=== PATIENT | female | born 1970 | race American Indian/Alaskan Native ===

== ENCOUNTER 2017-09-22 01:28 | Emergency (ER) | payer MEDICARE ==
[2017-09-22 01:57] VITALS: BP 105/63
[2017-09-22 02:31] LABS: HCG Qualitative,Urine Negative (Negative)
[2017-09-22 02:33] LABS: Bilirubin,Urine NEG (Negative); Blood,Urine NEG (Negative); Color,Urine Yellow (Yellow); Mucus,Urine FEW /HPF; Nitrite,Urine NEG (Negative); Protein,Urine <15 mg/dL mg/dL (Negative); Urobilinogen,Urine < 2.0 mg/dL (<2.0)
--- NOTE | 2017-09-22 03:04 | XRay Report ---
FINAL REPORT EXAM: XR CHEST ROUTINE 2V HISTORY: sob COMPARISON: None available. FINDINGS:: Frontal and lateral views of the chest obtained. Moderate cardiac enlargement. Left-sided cardiac defibrillator is in place. Prior median sternotomy. Hazy interstitial opacities throughout the lungs. Findings are concerning for mild edema. No pneumothorax. May be pleural thickening along the lateral margin of the left lung base. Tiny loculated effusion is not excluded. IMPRESSION:: Findings concerning for mild CHF. Moderate cardiac enlargement.
== END 2017-09-22 07:30 | disposition left against medical advice (07) ==
LOC: ED 01:28
DX: R05 Cough (principal); R06.02 Shortness of breath; R09.81 Nasal congestion; Z53.21 Procedure and treatment not carried out due to patient leaving prior to being seen by health care provider
CPT/HCPCS: 71046; 81001; 81025

== ENCOUNTER 2017-12-09 14:12 | Emergency (ER) | payer MEDICARE ==
[2017-12-09] MEDS ORDERED: ASPIRIN PO ONE (14:18)
[2017-12-09] MEDS ORDERED: NACL 0.9% 1000 ML 1,000 ML IV ONE ×2 (14:32→18:07)
[2017-12-09] MEDS ORDERED: NACL 0.9% 500 ML 500 ML IV ONE (14:45)
[2017-12-09] MEDS ORDERED: NACL 0.9% 1000 ML 1,000 ML ONE (14:46)
[2017-12-09] MEDS ORDERED: BABY ASPIRIN ONE (14:47)
[2017-12-09] MEDS ORDERED: CORDARONE 900 MG in D5W 482 ML IV SCH (15:30)
[2017-12-09 15:35] LABS: Basophils # (Auto) 0.1 K/mm3 (0.0-0.1); Basophils % (Auto) 0.8 % (0.0-1.8); Eosinophils # (Auto) 0.1 K/mm3 (0.0-0.4); Eosinophils % (Auto) 1.4 % (0.0-4.3); Hematocrit 41.7 % (30.3-42.9); Hemoglobin 13.4 gm/dl (10.1-14.3); Lymphocytes # (Auto) 2.9 K/mm3 (1.2-5.4); Lymphocytes % (Auto) 33.5 % (13.4-35.0); Mean Corpuscular HGB Conc 32 % (30-34); Mean Corpuscular Hemoglobin 26 pg (28-32); Mean Corpuscular Volume 80 fl (79-97); Monocytes # (Auto) 0.8 K/mm3 (0.0-0.8); Monocytes % (Auto) 8.9 % (0.0-7.3); Platelet Count 230 K/mm3 (140-440); Red Blood Count 5.22 M/mm3 (3.65-5.03); Red Cell Distribution Width 17.8 % (13.2-15.2)
[2017-12-09 15:43] LABS: BUN/Creatinine Ratio 18; Blood Urea Nitrogen 21 mg/dL (7-17); Calcium 9.1 mg/dL (8.4-10.2); Hemolysis Index 40
--- NOTE | 2017-12-09 15:59 | Emergency Department Report ---
HPI - General Chief Complaint: Chest Pain Time Seen by Provider: 12/09/17 14:23 - HPI HPI: 47-year-old -[place] female history of sarcoidosis, history of myasthenia gravis, CHF status post AICD, pacemaker presents to ED with palpitations, chest pain, shortness of breath. Patient received a shock prior to coming to ED became very anxious. Patient states she is compliant with her medication but have been feeling unwell since yesterday. In the room patient had nonsustained runs of V. tach on the monitor, appears to be in mild distress. 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 - Surgical History Past Surgical History?: Yes Hx Internal Defibrillator: Yes - Social History Smoking Status: Never Smoker Substance Use Type: None - Medications Home Medications: Home Medications Medication Instructions Recorded Confirmed Last Taken Type Cyclobenzaprine HCl [Flexeril 5 MG 5 mg PO TID PRN #21 tab 01/06/16 Unknown Rx TAB] Ibuprofen [Motrin 800 MG tab] 1 tab PO Q8HR PRN #30 tablet 01/06/16 Unknown Rx ED Review of Systems ROS: Stated complaint: PACEMAKER WENT OFF Other details as noted in HPI Comment: All other systems reviewed and negative Cardiovascular: chest pain, palpitations, dyspnea on exertion Physical Exam - Physical Exam Vital Signs: Vital Signs 12/09/17 14:15 Temperature 97.8 F Pulse Rate 87 Respiratory 28 H Rate Blood Pressure 94/49 O2 Sat by Pulse 100 Oximetry Physical Exam: - Physical Exam Physical Exam: - General Limitations: No Limitations General appearance: In severe distress - Head Head exam: Present: atraumatic, normocephalic - Eye Eye exam: Present: normal appearance - ENT ENT exam: Present: mucous membranes moist - Neck Neck exam: Present: normal inspection - Respiratory Respiratory exam: Present: normal lung sounds bilaterally. Absent: respiratory distress - Cardiovascular Cardiovascular Exam: Present: Irregularly irregular - GI/Abdominal GI/Abdominal exam: Present: soft, normal bowel sounds - Extremities Exam Extremities exam: Present: normal inspection - Back Exam Back exam: Present: normal inspection - Neurological Exam Neurological exam: Present: alert, oriented X3 - Psychiatric Psychiatric exam: normal affect and mood - Skin Skin exam: Present: warm, dry, intact, normal color. Absent: rash ED Course Vital Signs 12/09/17 14:15 Temperature 97.8 F Pulse Rate 87 Respiratory 28 H Rate Blood Pressure 94/49 O2 Sat by Pulse 100 Oximetry - Reevaluation(s) Reevaluation #1: 12/09/17 16:47 Advise nurse to give patient an amiodarone drip. IV access obtained patient received 500 mL of bolus with improvement in her hypotension. Patient states she gets most of her medical care at [facility], her road inspector is Dr. Chilo Saldaña, she requested be transferred to [facility] for higher level of care and continued care. I called [facility] transfer line and spoke with Dr. DAKOTA puckett who accepted patient. Heart rate 60s to 80s, blood pressure 90s to 100/50 to 60s patient is stable for transfer. ED Medical Decision Making - Lab Data Result diagrams: 12/09/17 15:17 12/09/17 15:17 Critical care attestation.: If time is entered above; I have spent that time in minutes in the direct care of this critically ill patient, excluding procedure time. ED Disposition Clinical Impression: Nonsustained ventricular tachycardia Acute exacerbation of CHF (congestive heart failure) Qualifiers: Heart failure type: systolic Qualified Code(s): I50.23 - Acute on chronic systolic (congestive) heart failure Disposition: [id number]/TX-70 ANOTHER TYPE HLTHCARE Is pt being admited?: No Does the pt Need Aspirin: No Condition: Stable Referrals: PRIMARY CARE, [Primary Care Provider] - 3-5 Days
--- NOTE | 2017-12-09 16:28 | XRay Report ---
FINAL REPORT EXAM: XR CHEST 1V AP HISTORY: chest pain, aicd firing, sob, TECHNIQUE: Frontal portable examination of the chest PRIORS: 09/22/2017 FINDINGS: An electronic cardiac device remains in place and again obscures a portion of the left chest, limiting the examination. Cable entry is via the left subclavian vein. Sternotomy cerclage wires are again present. Cardiac silhouette size remains enlarged but decreased from comparison. Vascular congestion remains present, also decreased. No pneumothorax, pleural effusion, or focal pulmonary consolidation in the visualized chest. IMPRESSION: Interval decreased prominence of cardiomegaly and vascular congestion
[2017-12-09 18:07] VITALS: BP 119/51
[2017-12-09] MEDS ORDERED: INTROPIN DRIP 800 MG/D5W 250 ML 800 MG/250 ML BAG IV ONE (19:26)
== END 2017-12-09 19:22 | disposition other institution (70) ==
LOC: ED 14:12
DX: I50.9 Heart failure, unspecified (principal); Z95.1 Presence of aortocoronary bypass graft
CPT/HCPCS: 36415; 71045; 80048; 83880; 84484; 85025; 93005; 93010; 96365; 96366; 96368; 99285; J0282; J1265; J7030; J7040; J7060